=== PATIENT | male | born 1960 | race Caucasian/White ===

== ENCOUNTER 2019-08-26 13:10 | Emergency (ER) | payer BC, OTHER ==
[2019-08-26] MEDS ORDERED: NA CHLORIDE 0.9% 2,000 ML ONE (13:53)
[2019-08-26 13:58] LABS: Absolute Lymphocytes (CBC) 0.3 K/uL (0.7-4.9); Basophils % 0.2 % (0-1.3); Lymphocytes % 2.8 % (15.3-44.8)
[2019-08-26] MEDS ORDERED: ACETAMINOPHEN 500 MG TAB ONE (14:05)
[2019-08-26 14:06] LABS: Protime INR 1.1
--- NOTE | 2019-08-26 14:08 | RAD REPORT ---
EXAM DESCRIPTION: Michael Single View08/26/2019 2:01 pm CLINICAL HISTORY: fever COMPARISON: none FINDINGS: The lungs appear clear of acute infiltrate. The heart is normal size IMPRESSION: No acute abnormalities displayed
[2019-08-26 14:13] LABS: Urine Bacteria 20-50 /HPF (NONE SEEN); Urine Culture Reflex Order REFLEXED; Urine Mucus 1+ /HPF (NONE SEEN)
[2019-08-26 14:14] LABS: Urine Blood 1+ (NEG); Urine Glucose NEGATIVE (NEG); Urine Protein 1+ (NEG); Urine Specific Gravity 1.025 (1.005-1.030); Urine pH 8.5 (5.0-7.0)
[2019-08-26 14:20] LABS: ALT/SGPT 43 U/L (12-78); AST/SGOT 23 U/L (15-37); Albumin 3.8 g/dL (3.4-5.0); Alkaline Phosphatase 82 U/L (45-117); BUN Blood Urea Nitrogen 14 mg/dL (7-18); Bicarbonate 23 mmol/L (21-32); Bilirubin Direct 0.4 mg/dL (0-0.2); Bilirubin Total 1.6 mg/dL (0.2-1.0); Creatine Phosphokinase 211 U/L (39-308); Glucose Level 114 mg/dL (74-106); Lipase 116 U/L (73-393); Potassium 4.1 mmol/L (3.5-5.1); Protein, Total 6.8 g/dL (6.4-8.2); Sodium Level 136 mmol/L (136-145); Troponin (Emerg Dept Use Only) < 0.02 ng/mL (0.0-0.045)
[2019-08-26] MEDS ORDERED: VANCOMYCIN/NS 1 gm 1 GM/250 ML BAG IVPB ONE (15:00)
[2019-08-26 16:40] VITALS: TEMP 99.7; O2SAT 99
[2019-08-26 16:45] VITALS: BP 134/91
[2019-08-26 18:31] LABS: Blood Morphology Comment NOT SEEN (NOT SEEN); Platelet Estimate DECR; Urine White Blood Cell Casts OK
--- NOTE | 2019-08-27 12:56 | EKG ---
Test Date: 2019-08-26 Test Time: 14:02:06 Canning Machine Operator: RYLIE MEASUREMENT RESULTS: Intervals: Rate: 119 SD: 130 QRSD: 84 QT: 316 QTc: 444 [place]: P: 40 SD: 130 QRS: 52 T: 44 INTERPRETIVE STATEMENTS: Sinus tachycardia Possible Left atrial enlargement Borderline ECG Compared to ECG 11/21/2001 20:25:00 Sinus rhythm no longer present Electronically Signed On 08-27-19 12:55:31 CDT by [place]
--- NOTE | 2019-08-29 17:08 | ER ---
Nurse's Notes [facility] Name: Derek Okeefe Age: 58 yrs Sex: Male : 1960 Arrival Date: 08/26/2019 Time: 13:14 Bed 8 Private MD: Diagnosis: Acute cystitis Presentation: 08/25 13:21 Chief complaint: Patient states: Burning w/ urination, urinary frequency, chills, ph headache, had a trans-urethral procedure done on for prostate, denies N/V, cough, or SOB. Coronavirus screen: Patient denies a cough. Patient denies shortness of breath or difficulty breathing. Patient reports a measured and/or subjective temperature greater than 100.4F. Patient denies travel on a cruise ship or to a country the [facility] currently lists as an affected area. Patient denies contact with known and/or suspected case of COVID-19. Ebola Screen: No symptoms or risks identified at this time. Initial Sepsis Screen: Does the patient meet any 2 criteria? HR > 90 bpm. Does the patient have a suspected source of infection? Yes: Dysuria/Frequency/Urgency/UTI. Risk Assessment: Do you want to hurt yourself or someone else? Patient reports no desire to harm self or others. Onset of symptoms was August 26, 2019. 13:21 Method Of Arrival: Ambulatory 13:21 Acuity: IFTIKHAR 2 ph Triage Assessment: 13:38 Headache History: The patient has had previous headaches and this one is similar to bp previous episodes. General: Appears in no apparent distress. uncomfortable, Behavior is cooperative, appropriate for age, anxious, FIRST CONTACT WITH PT. General: CODE SEPSIS CALLED. Pain: Complains of pain in head Pain currently is 7 out of 10 on a pain scale. Pain: Pain began 1 day ago. Also complains of no other associated symptoms. EENT: No deficits noted. Neuro: Level of Consciousness is awake, alert, obeys commands, Oriented to person, place, time, situation, Appropriate for age Reports headache. Cardiovascular: Rhythm is sinus tachycardia. Respiratory: No deficits noted. GI: No signs and/or symptoms were reported involving the gastrointestinal system. : Reports urinary frequency. Derm: No deficits noted. Musculoskeletal: No deficits noted. Historical: - Allergies: 13:25 No Known Allergies; ph - PMHx: 13:25 Arthritis; Hyperlipidemia; ph - PSHx: 13:25 orthopedic surgeries; ph - Immunization history:: Adult Immunizations unknown. - Social history:: Smoking status: Patient/guardian denies using tobacco, the patient reports quitting approximately 40 years ago. Screenin:38 Abuse screen: Denies threats or abuse. Denies injuries from another. Nutritional bp screening: No deficits noted. Tuberculosis screening: No symptoms or risk factors identified. Fall Risk None identified. Assessment: 13:38 General: SEE TRIAGE NOTE. bp 15:50 Reassessment: Pt states "I feel a lot better. Just a slight MILLER." SAMEERA Frazier at bedside jl7 discussing results and POC. 16:16 Reassessment: PT D/C HOME AMBULATORY, DX WITH ACUTE CYSTITIS. bp Vital Signs: 13:21 BP 110 / 92; Pulse 139; Resp 20; Temp 99.7(O); Pulse Ox 99% on R/A; Weight 80.74 kg; ph Height 5 ft. 11 in. (180.34 cm); 15:17 BP 136 / 86; Pulse 96; Resp 15; Pulse Ox 97% ; jl7 15:50 BP 134 / 91; Pulse 104; Resp 17; Pulse Ox 99% ; jl7 13:21 Body Mass Index 24.83 (80.74 kg, 180.34 cm) ph ED Course: 13:14 Patient arrived in ED. as 13:24 Triage completed. ph 13:25 Arm band placed on Patient placed in an exam room. ph 13:27 Freddie Chery PA is PHCP. jr8 13:27 Hernandez Gregory MD is Attending Physician. jr8 13:37 Kuldip Matias, ANDRES is Primary Nurse. bp 13:38 Patient has correct armband on for positive identification. Bed in low position. Call bp light in reach. Side rails up X2. 13:45 Inserted saline lock: 20 gauge in right antecubital area, using aseptic technique. ss Blood collected. 14:02 Chest Single View XRAY In Process Unspecified. EDMS 14:03 EKG done, by ED staff, reviewed by Freddie BRASHER. em1 16:16 No provider procedures requiring assistance completed. IV discontinued, intact, bp bleeding controlled, No redness/swelling at site. Pressure dressing applied. Administered Medications: 13:55 Drug: NS 0.9% (30 ml/kg) 30 ml/kg Route: IV; Rate: bolus; Site: right antecubital; ss 16:18 Follow up: IV Status: Completed infusion; IV Intake: 2500ml bp 14:02 Drug: Tylenol 1000 mg Route: PO; bp 14:50 Follow up: Response: Temperature is decreased bp 14:16 Drug: Cefepime 1 grams Route: IVPB; Rate: 200 ml/hr; Infused Over: 30 mins; Site: right ss antecubital; 16:18 Follow up: IV Status: Completed infusion; IV Intake: 100ml bp 14:49 Drug: vancoMYCIN 1 grams Route: IVPB; Infused Over: 2 hrs; Site: right antecubital; bp 16:17 Follow up: IV Status: Completed infusion; IV Intake: 100ml bp Intake: 16:17 IV: 100ml; Total: 100ml. bp 16:18 IV: 100ml; Total: 200ml. bp 16:18 IV: 2500ml; Total: 2700ml. bp Outcome: 15:54 Discharge ordered by . radha 16:16 Discharged to home ambulatory. bp 16:16 Condition: stable 16:16 Discharge instructions given to patient, Instructed on discharge instructions, follow up and referral plans. medication usage, Demonstrated understanding of instructions, follow-up care, medications, Prescriptions given X 2. 16:33 Patient left the ED. bp Addendum: 08/28/2019 07:38 Addendum: Culture Results: Positive urine culture. No further action required. Bacteria e b sensitive to prescribed antibiotic. Signatures: Dispatcher [employer] EDMS Allison Ramirez Eric em1 Susan Pires RN RN ss Roszak, Josh, PA PA jr8 Gudelia James RN RN ph Pb Holloway RN RN jl7 Kuldip Matias RN RN Sheri Ybarra Corrections: (The following items were deleted from the chart) 08/25 14:28 13:21 Initial Sepsis Screen: Does the patient meet any 2 criteria? HR > 90 bpm. Does ph the patient have a suspected source of infection? Yes: Dysuria/Frequency/Urgency/UTI ph
--- NOTE | 2019-08-29 17:09 | EDPHYS ---
Physician Documentation [facility] Name: Derek Okeefe Age: 58 yrs Sex: Male : 1960 Arrival Date: 08/26/2019 Time: 13:14 Bed 8 Private MD: Hernandez Mckoy HPI: 08/25 15:45 This 58 yrs old Male presents to ER via Ambulatory with complaints of Urinary jr8 Problem, Fever, Headache. 15:45 The patient presents with urinary symptoms, dysuria, urinary frequency. Onset: The jr8 symptoms/episode began/occurred gradually, 2 day(s) ago. Modifying factors: The symptoms are alleviated by nothing, the symptoms are aggravated by urinating. Associated signs and symptoms: Pertinent positives: fever. Severity of symptoms: At their worst the symptoms were moderate, in the emergency department the symptoms are unchanged. The patient has not experienced similar symptoms in the past. The patient has been recently seen by a physician:. Patient has cystoscopy 3 days ago. Has some burning but wasn't bad but now with fever and worsening of symptoms . Historical: - Allergies: 13:25 No Known Allergies; ph - PMHx: 13:25 Arthritis; Hyperlipidemia; ph - PSHx: 13:25 orthopedic surgeries; ph - Immunization history:: Adult Immunizations unknown. - Social history:: Smoking status: Patient/guardian denies using tobacco, the patient reports quitting approximately 40 years ago. ROS: 15:45 Eyes: Negative for injury, pain, redness, and discharge, ENT: Negative for injury, jr8 pain, and discharge, Neck: Negative for injury, pain, and swelling, Cardiovascular: Negative for chest pain, palpitations, and edema, Respiratory: Negative for shortness of breath, cough, wheezing, and pleuritic chest pain, Abdomen/GI: Negative for abdominal pain, nausea, vomiting, diarrhea, and constipation, Back: Negative for injury and pain, MS/Extremity: Negative for injury and deformity, Skin: Negative for injury, rash, and discoloration. 15:45 Constitutional: Positive for body aches, fever. 15:45 : Positive for urinary symptoms, Negative for penile discharge, penile pain, testicular pain 15:45 Neuro: Positive for headache. Exam: 15:45 Eyes: Pupils equal round and reactive to light, extra-ocular motions intact. Lids and jr8 lashes normal. Conjunctiva and sclera are non-icteric and not injected. Cornea within normal limits. Periorbital areas with no swelling, redness, or edema. ENT: Nares patent. No nasal discharge, no septal abnormalities noted. Tympanic membranes are normal and external auditory canals are clear. Oropharynx with no redness, swelling, or masses, exudates, or evidence of obstruction, uvula midline. Mucous membranes moist. Neck: Trachea midline, no thyromegaly or masses palpated, and no cervical lymphadenopathy. Supple, full range of motion without nuchal rigidity, or vertebral point tenderness. No Meningismus. Respiratory: Lungs have equal breath sounds bilaterally, clear to auscultation and percussion. No rales, rhonchi or wheezes noted. No increased work of breathing, no retractions or nasal flaring. Abdomen/GI: Soft, non-tender, with normal bowel sounds. No distension or tympany. No guarding or rebound. No evidence of tenderness throughout. Back: No spinal tenderness. No costovertebral tenderness. Full range of motion. Skin: Warm, dry with normal turgor. Normal color with no rashes, no lesions, and no evidence of cellulitis. MS/ Extremity: Pulses equal, no cyanosis. Neurovascular intact. Full, normal range of motion. Neuro: Awake and alert, GCS 15, oriented to person, place, time, and situation. Cranial nerves II-XII grossly intact. Motor strength 5/5 in all extremities. Sensory grossly intact. Cerebellar exam normal. Normal gait. 15:45 Cardiovascular: Rate: tachycardic, Rhythm: regular, Pulses: Pulses are 2+ in right radial artery and left radial artery. Heart sounds: normal, normal S1and S2, no S3 or S4, no murmur, no rub, no gallop, Edema: is not appreciated, JVD: is not appreciated. Vital Signs: 13:21 BP 110 / 92; Pulse 139; Resp 20; Temp 99.7(O); Pulse Ox 99% on R/A; Weight 80.74 kg; ph Height 5 ft. 11 in. (180.34 cm); 15:17 BP 136 / 86; Pulse 96; Resp 15; Pulse Ox 97% ; jl7 15:50 BP 134 / 91; Pulse 104; Resp 17; Pulse Ox 99% ; jl7 13:21 Body Mass Index 24.83 (80.74 kg, 180.34 cm) ph MDM: 13:28 Patient medically screened. 8 15:52 Data reviewed: vital signs, nurses notes, lab test result(s), radiologic studies, plain [facility] films. Data interpreted: Pulse oximetry: on room air is 99 %. Interpretation: normal. Counseling: I had a detailed discussion with the patient and/or guardian regarding: the historical points, exam findings, and any diagnostic results supporting the discharge/admit diagnosis, lab results, radiology results, the need for outpatient follow up, a urologist, to return to the emergency department if symptoms worsen or persist or if there are any questions or concerns that arise at home. Response to treatment: the patient's symptoms have markedly improved after treatment, patient is well hydrated. ED course: Minimal elevation in WBC count. Lactate and procalcitonin normal. Rest of labs unremarkable accept micro which shows UTI being present and is source of his fever. Patient feels much better. VS normalized. Wants to go home to f/u. Will be put on Abx at home with close return precautions. 08/25 13:28 Order name: Urine Culture 08/25 13:28 Order name: Basic Metabolic Panel; Complete Time: 15:44 [facility] 08/25 13:28 Order name: Blood Culture Adult (2) [facility] 08/25 13:28 Order name: CBC with Diff 08/25 13:28 Order name: CPK; Complete Time: 15:44 [facility] 08/25 13:28 Order name: Lactate; Complete Time: 14:19 08/25 13:28 Order name: LFT's; Complete Time: 15:44 08/25 13:28 Order name: Lipase; Complete Time: 15:44 08/25 13:28 Order name: Procalcitonin; Complete Time: 15:44 [facility] 08/25 13:28 Order name: Protime (+inr); Complete Time: 15:44 08/25 13:28 Order name: Ptt, Activated; Complete Time: 15:44 08/25 13:28 Order name: Troponin (emerg Dept Use Only); Complete Time: 15:44 08/25 13:28 Order name: Urine Microscopic Only; Complete Time: 14:19 [facility] 08/25 13:40 Order name: Urine Dipstick--Ancillary (enter results); Complete Time: 14:19 08/25 13:28 Order name: Chest Single View XRAY; Complete Time: 14:12 08/25 13:28 Order name: Accucheck; Complete Time: 13:54 08/25 13:28 Order name: Cardiac monitoring; Complete Time: 13:54 [facility] 08/25 13:28 Order name: EKG - Nurse/Tech; Complete Time: 13:54 [facility] 08/25 13:28 Order name: IV Saline Lock - Large Bore; Complete Time: 13:54 08/25 13:28 Order name: Labs collected and sent; Complete Time: 13: [facility] 08/25 13:28 Order name: O2 Per Protocol; Complete Time: 13: [facility] 08/25 13:28 Order name: O2 Sat Monitoring; Complete Time: 13:54 [facility] 08/25 13:28 Order name: Urine Dipstick-Ancillary (obtain specimen); Complete Time: 13: [facility] 08/25 13:57 Order name: Glucose, Ancillary Testing; Complete Time: 14:04 EDMS Administered Medications: 13:55 Drug: NS 0.9% (30 ml/kg) 30 ml/kg Route: IV; Rate: bolus; Site: right antecubital; 16:18 Follow up: IV Status: Completed infusion; IV Intake: 2500ml bp 14:02 Drug: Tylenol 1000 mg Route: PO; bp 14:50 Follow up: Response: Temperature is decreased bp 14:16 Drug: Cefepime 1 grams Route: IVPB; Rate: 200 ml/hr; Infused Over: 30 mins; Site: right ss antecubital; 16:18 Follow up: IV Status: Completed infusion; IV Intake: 100ml bp 14:49 Drug: vancoMYCIN 1 grams Route: IVPB; Infused Over: 2 hrs; Site: right antecubital; bp 16:17 Follow up: IV Status: Completed infusion; IV Intake: 100ml bp Disposition: 08/26 07:45 Co-signature as Attending Physician, Hernandez HERRERA I agree with the assessment and phuong plan of care. Disposition: 08/26/19 15:54 Discharged to Home. Impression: Acute cystitis. - Condition is Stable. - Discharge Instructions: Urinary Tract Infection, Adult. - Prescriptions for Cipro 500 mg Oral Tablet - take 1 tablet by ORAL route every 12 hours for 10 days; 20 tablet. Zofran 4 mg Oral Tablet - take 1 tablet by ORAL route every 12 hours As needed; 20 tablet. - Medication Reconciliation Form, Thank You Letter, Antibiotic Education, Prescription Opioid Use form. - Follow up: Private Physician; When: 2 - 3 days; Reason: If symptoms return, Recheck today's complaints, Continuance of care, Re-evaluation by your physician. - Problem is new. - Symptoms have improved. Signatures: Dispatcher [employer] EDCA Hernandez Gregory MD MD cha Smirch, Shelby, RN RN ss Freddie Chery PA PA jr8 Gudelia James, RN RN Kuldip Matias RN RN bp Corrections: (The following items were deleted from the chart) 08/25 16:33 15:54 08/26/2019 15:54 Discharged to Home. Impression: Acute cystitis. Condition is bp Stable. Forms are Medication Reconciliation Form, Thank You Letter, Antibiotic Education, Prescription Opioid Use. Follow up: Private Physician; When: 2 - 3 days; Reason: If symptoms return, Recheck today's complaints, Continuance of care, Re-evaluation by your physician. Problem is new. Symptoms have improved. jr8
== END 2019-08-26 16:33 | disposition home or self-care (01) ==
LOC: ER 13:10
DX: N30.00 Acute cystitis without hematuria (principal); E78.5 Hyperlipidemia, unspecified
CPT/HCPCS: 96365; 96367; 93005; 87040 ×2; 87088; 85025; 87086; 80048; 36415; 82550; 85610; 82947; 80076; 83605; 85730; 87077; 87186; 84484; 83690; 84145; 71045; 99284; J3370; J7030; 81003; 81015